=== PATIENT | female | born 2000 | race Caucasian/White ===

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

== ENCOUNTER 2018-07-17 17:42 | Emergency (ER) | payer OTHER ==
[2018-07-17 17:59] VITALS: BP 117/78; PULSE 101; TEMP 99.1; BMI 27.3
--- NOTE | 2018-07-17 18:42 | PDOC ---
Documentation entered by Deniz Meek SCRIBE, acting as scribe for Jamel Judd MD. Jamel Judd MD: This documentation has been prepared by the Fantasma machado Daniel, SCRIBE, under my direction and personally reviewed by me in its entirety. I confirm that the documentation accurately reflects all work, treatment, procedures, and medical decision making performed by me. History of Present Illness - General Chief Complaint: Sore Throat Stated Complaint: SORE THROAT History Source: Patient, Parent(s) Exam Limitations: No Limitations - History of Present Illness Initial Comments: 07/17/18 18:13 The patient is a 18 year old female with no past medical history here today for evaluation of sore throat. The patient reports that her throat pain began on thursday (07/14/18) and saw Dr. Boone who later prescribed azithromycin. Patient has been taking azithromycin and alternating tylenol and advil since yesterday without significant improvement. She also reports having a fever of 102 last night. Patient denies headache, lightheadedness. Denies chills, cough, sob/gonzáles, body aches Denies chest pain, shortness of breath. Denies nausea, vomiting, diarrhea , abdominal pain. Allergies: NKA PCP: Troy Boone Past History - Past Medical History Allergies/Adverse Reactions: Allergies Allergy/AdvReac Type Severity Reaction Status Date / Time No Known Allergies Allergy Verified 07/17/18 17:42 Home Medications: Ambulatory Orders Norethindrone 0.35 mg PO HS 02/19/16 Azithromycin [Zithromax] 250 mg PO DAILY 07/17/18 - Immunization History Immunization Up to Date: Yes - Suicide/Smoking/Psychosocial Hx Smoking History: Never smoked Have you smoked in the past 12 months: No Hx Alcohol Use: No Drug/Substance Use Hx: No Substance Use Type: None Review of Systems - Review of Systems Able to Perform ROS?: Yes Comments:: 07/17/18 18:14 CONSTITUTIONAL: +fever No reported: Chills, Diaphoresis, Generalized Weakness, Malaise, Loss of Appetite HEENT: +throat pain. +left ear pain No reported: Rhinorrhea, Nasal Congestion, Throat Swelling, Mouth Swelling, Ear Pain, Visual Changes CARDIOVASCULAR: No reported: Chest Pain, Syncope, Palpitations, Irregular Heart Rate, Lightheadedness, Peripheral Edema RESPIRATORY: No reported: Cough, Shortness of Breath, SOB with Exertion, Orthopnea, Wheezing , Stridor, Hemoptysis GASTROINTESTINAL: No reported: Abdominal pain, Nausea, Vomiting, *Physical Exam - Vital Signs Last Vital Signs Temp Pulse Resp BP Pulse Ox 99.1 F 101 H 20 117/78 100 07/17/18 17:42 07/17/18 17:42 07/17/18 17:42 07/17/18 17:42 07/17/18 17:42 - Physical Exam Comments: 07/17/18 18:27 GENERAL: The patient is awake, alert, and fully oriented, Nontoxic - in no acute distress. HEAD: Normocephalic, atraumatic. EYES: extraocular movements intact, sclera anicteric, conjunctiva clear. ENT: Normal voice, Moist mucous membranes, posterior phayrnx injected with exudates on L tonsil, uvula midline, no posterior pharyngeal fullness or assymetry NECK: Normal range of motion, supple, no stridor, no cervical lympadenopathy LUNGS: Breath sounds equal, clear to auscultation bilaterally. No wheezes, no rhonchi, no rales. HEART: Regular rate and rhythm, normal S1 and S2 without murmur, rub or gallop. ABDOMEN: Soft, nontender, No guarding, no rebound Medical Decision Making - Medical Decision Making 07/17/18 18:41 suspect strep no fullness/assymetry to suggest abcess will obtain rapid strep 07/17/18 18:46 rapid strep neg will have pt continue her abx return precautions were discussed for abcess I discussed the physical exam findings, ancillary test results and final diagnoses with the patient. I answered all of the patient's questions. The patient was satisfied with the care received and felt comfortable with the discharge plan and treatment plan. The patient will call their primary care physician within 24 hours to arrange follow-up and will return to the Emergency Department with any new, persistent or worsening symptoms. *DC/Admit/Observation/Transfer Diagnosis at time of Disposition: Pharyngitis Qualifiers: Pharyngitis/tonsillitis etiology: other specified organisms Qualified Code(s): J02.8 - Acute pharyngitis due to other specified organisms - Discharge Dispostion Disposition: HOME Condition at time of disposition: Stable Decision to Admit order: No - Referrals Referrals: Troy Boone MD [Staff Physician] - - Patient Instructions Printed Discharge Instructions: DI for Pharyngitis/Tonsillopharyngitis -- Adult Additional Instructions: Return to the emergency department immediately with ANY new, persistent or worsening symptoms including any difficulty breathing, difficulty swallowing, swelling, changes in the voice or any other concerns. You MUST call and follow up with your doctor in 2-3 days for further evaluation of your symptoms. Results were discussed with you. Please make sure your doctor reviews the results of your emergency evaluation. The rapid strep was negative a throat culture was sent and will be back in a few days. Continue taking your antibiotics as prescribed. Take Motrin and Tylenol as needed for the pain and any fever. Print Language: TONGAN - Post Discharge Activity
== END 2018-07-17 19:03 | disposition home or self-care (01) ==
LOC: FER 17:42
DX: J02.8 Acute pharyngitis due to other specified organisms (principal); B97.89 Other viral agents as the cause of diseases classified elsewhere
CPT/HCPCS: 36415; 87070; 87491; 87591; 87880; 99281-25